=== PATIENT | male | born 1970 | race Caucasian/White ===

== ENCOUNTER 2019-02-01 15:19 | Emergency (ER) | payer BC ==
--- NOTE | 2019-02-01 15:42 | Emergency Department Record ---
History of Present Illness - General Chief complaint: Flank Pain Stated complaint: POSSIBLE UTI,ABD PAIN LOWER RIGHT SIDE Time Seen by Provider: 02/01/19 15:30 Source: Patient Mode of Arrival: Ambulatory Limitations: No limitations - History of Present Illness Initial comments: The patient is here due to a one month hx of dysuria and mild urethral discha rge. The symptoms seem to be getting progressively worse and the patient does have an appointment with a Urologist tomorrow in [place]. He does intermittently have mild R flank pain but mainly only when urinating. There has been no nausea, vomiting, fever, back pain or any groin swelling. The patient does have a hx of a urethral stricture in the remote past and did need an operation on it at age [age]. MD Complaint: Dysuria Onset/Timin -: Month(s) Severity scale (1-10): 5 Quality: Sharp Improves with: None Worsens with: None Reports: Blood in urine - Related Data Previous Rx's Medication Instructions Recorded Ciprofloxacin HCl [Cipro] 500 mg PO Q12HR #14 tablet 02/01/19 Allergies Allergy/AdvReac Type Severity Reaction Status Date / Time No Known Drug Allergies Allergy Verified 02/01/19 15:32 Travel Screening - Travel/Exposure Within Last 30 Days Have you traveled within the last 30 days?: No - Travel/Exposure Within Last Year Have you traveled outside the [place] in the last year?: No - Additonal Travel Details Have you been exposed to anyone with a communicable illness?: No - Travel Symptoms Symptom Screening: None Review of Systems Constitutional: Denies: Chills, Fever Eyes: Denies: Eye discharge ENT: Denies: Congestion Respiratory: Denies: Cough, Dyspnea Past Medical History - SOCIAL HISTORY Smoking Status: Current every day smoker Alcohol Use: Heavy Alcohol Use Comment: 6-8 beers daily Drug Use: None - RESPIRATORY Hx Respiratory Disorders: Yes Hx Pneumonia: Yes - CARDIOVASCULAR Hx Cardio Disorders: No - NEURO Hx Neuro Disorders: No - GI Hx GI Disorders: No - Hx Genitourinary Disorders: No Comment:: penile surgery as child - ENDOCRINE Hx Endocrine Disorders: No - MUSCULOSKELETAL Hx Musculoskeletal Disorders: No - PSYCH Hx Psych Problems: No - HEMATOLOGY/ONCOLOGY Hx Hematology/Oncology Disorders: No Family Medical History Any Significant Family History?: No Physical Exam - General General Appearance: Alert, Oriented x3, Cooperative, No acute distress - Head Head exam: Atraumatic, Normocephalic, Normal inspection - Eye Eye exam: Normal appearance - Neck Neck exam: Normal inspection, Full ROM. negative: Tenderness - Respiratory Respiratory exam: Normal lung sounds bilaterally. negative: Respiratory distress - Cardiovascular Cardiovascular Exam: Regular rate, Normal rhythm, Normal heart sounds - GI/Abdominal GI/Abdominal exam: Soft, Normal bowel sounds. negative: Rebound, Rigid, Tenderness - exam: Circumcision, Urethral discharge (with mild inflamation and tenderness at the urethral tip.) Course Vital Signs 02/01/19 15:25 Temperature 98.0 F Pulse Rate 100 H Respiratory 20 Rate Blood Pressure 164/102 Pulse Ox 96 - Reevaluation(s) Reevaluation #1: I did discuss the need for an oral Abx with the patient. We will place the patient on Cipro and will instruct to see the Urologist tomorrow. Due to the patient's hx of urethral strictures I did elect to treat with the Cipro. 02/01/19 16:31 Medical Decision Making - Data Complexity MDM Data: Labs Ordered and/or Reviewed - Lab Data Result diagrams: 02/01/19 15:50 02/01/19 15:50 Disposition Disposition: Discharge Clinical Impression: Urethritis Disposition: Home, Self-Care Condition: (2) Stable Instructions: Dysuria (ED) Additional Instructions: Please take the Cipro as directed and please see your Urologist tomorrow as planned. Return to the ER for any worsening symptoms, pain, fever, or vomiting. Please also see your family doctor due to your elevated glucose. Prescriptions: Ciprofloxacin HCl [Cipro] 500 mg PO Q12HR #14 tablet Forms: Patient Portal Access Time of Disposition: 16:34 Quality - Quality Measures Quality Measures: N/A - Blood Pressure Screening View Details: Yes Does Patient Have Any of the Following: No Blood Pressure Classification: Hypertensive Reading Systolic Measurement: 164 Diastolic Measurement: 102 Screening for High Blood Pressure: < First Hypertensive BP, F/U Documented > [[id number]] First Hypertensive Follow-up Interventions: Referral to alternative/primary care provider.
[2019-02-01 16:04] LABS: ABSOLUTE NEUTROPHIL COUNT 4.81; BASO % 0.5 % (0-6); EOS % 2.1 % (0-6); GRAN % 59.2 % (47-80); HEMATOCRIT 43.8 % (42.0-52.0); HEMOGLOBIN 15.4 gm/dl (14.0-18.0); LYMPH % 31.2 % (16-45); MEAN CELL VOLUME 94.6 fl (81-97); MEAN CORPUSCULAR HEMOGLOBIN 33.3 pg (27-33); MEAN CORPUSCULAR HGB CONC 35.2 g/dl (32-36); MEAN PLATELET VOLUME 10.1 fl (7.4-10.4); PLATELET COUNT 187 K/uL (130-400); RED BLOOD COUNT 4.63 M/uL (4.40-5.70); URINE APPEARANCE CLEAR; URINE BILIRUBIN NEGATIVE (NEGATIVE); URINE BLOOD NEGATIVE (NEGATIVE); URINE COLOR YELLOW; URINE GLUCOSE (UA) NEGATIVE (NEGATIVE); URINE KETONE NEGATIVE (NEGATIVE); URINE LEUKOCYTE ESTERASE NEGATIVE (NEGATIVE); URINE NITRITE NEGATIVE (NEGATIVE); URINE PROTEIN NEGATIVE (NEGATIVE); URINE UROBILINOGEN 0.2 E.U./dL (0.20 - 1.00); WHITE BLOOD COUNT W/O DIFF 8.1 K/uL (4.2-12.2)
[2019-02-01 16:12] LABS: BLOOD UREA NITROGEN 11 mg/dL (6-20); CREATININE 0.8 mg/dL (0.7-1.2); EST GLOMERULAR FILTRATION RATE > 60 mL/min
[2019-02-01 16:15] LABS: GLUCOSE,RANDOM 203 mg/dL (74-109)
== END 2019-02-01 16:42 | disposition home or self-care (01) ==
LOC: ER 15:19
DX: N34.2 Other urethritis (principal); R31.0 Gross hematuria; R30.0 Dysuria; F17.210 Nicotine dependence, cigarettes, uncomplicated
CPT/HCPCS: 80048; 81003; 85025; 99283